=== PATIENT | female | born 1995 | race African-American/Black ===

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

== ENCOUNTER 2017-02-12 09:02 | Emergency (ER) | payer MEDICAID ==
[~2017-02-12] VITALS: Ht 165.1 cm; Wt 75.0 kg
[~2017-02-12 09:02] MED LIST: ZOFR4TAB3 SL
[2017-02-12 09:03] VITALS: BP 134/74; PULSE 80; RESP 14; TEMP 98.1; O2SAT 98
[2017-02-12 09:37] LABS: BACTERIA, URINE FEW /hpf; BLOOD, URINE SMALL (NEG); COMMENT (UR) CULTURE INDICATED; CULTURE IF INDICATED CULTURE INDICATED; GLUCOSE,URINE NEG (NEG); KETONE, URINE NEG (NEG); NITRITE,URINE NEG (NEG); PH, URINE 6.5 (5.0-8.5); RENAL EPITHELIAL CELLS 1 /hpf; SQUAMOUS EPITHELIAL CELL URINE 5 /hpf (0-5); URINE COLOR YELLOW (YELLW/STRAW)
[2017-02-12] MEDS ORDERED: PYRI200T4 PO (10:02)
[2017-02-12] MEDS ORDERED: MACR100C2 PO (10:02)
--- NOTE | 2017-02-12 10:02 | PD ---
HPI Chief Complaint: Complaint Time Seen by Provider: 09:57 Travel History International Travel<30 days: No Contact w/Intl Traveler<30days: No Traveled to known affect area: No History of Present Illness HPI 21-year-old female here with complaint of urinary symptoms. For the last 3 days patient has had discomfort, burning at the end stream of urination. She notes some urinary frequency. No hematuria. No low back pain, flank pain. She denies any abdominal discomfort until approximate 5 minutes prior to arrival , low within the abdomen. No abnormal vaginal discharge, bleeding. She does not believe she could be . No fevers or chills. PFSH Past Medical History ADHD: No Depression: Yes Cancer: No Cardiovascular Problems: No Developmental Delay: No Diabetes: No Diminished Hearing: No Gastrointestinal Disorders: Yes (chronic constipation) Musculoskeletal: Yes (TORN MENISCUS LEFT KNEE) Immunizations Current: Yes Migraines: No Seizures: No Thyroid Disease: No Ulcer: No ?: Not LMP: 01/28/17 : 2 Para: 1 Miscarriage: 0 : 1 Ovarian Cysts: Yes Past Surgical History Abdominal Surgery: Yes (UMBILICAL HERNIA REPAIR WITH MESH 4yr old) Social History Alcohol Use: No Tobacco Use: No Substance Use: No Allergies-Medications (Allergen,Severity, Reaction): Coded Allergies: No Known Allergies (Verified , 02/12/17) Reported Meds & Prescriptions Reported Meds & Active Scripts Active Review of Systems Except as stated in HPI: all other systems reviewed are Neg Physical Exam Narrative GENERAL: Well-appearing female in no acute distress SKIN: Warm and dry. HEAD: Normocephalic. EYES: No scleral icterus. No injection or drainage. ENT: Mucous membranes pink and moist. NECK: Supple CARDIOVASCULAR: Regular rate and rhythm. RESPIRATORY: No accessory muscle use. GASTROINTESTINAL: Abdomen soft, non-tender, nondistended. Hepatic and splenic margins not palpable. No CVA tenderness MUSCULOSKELETAL: Normal gait NEUROLOGICAL: Awake and alert. Normal speech. PSYCHIATRIC: Appropriate mood and affect; insight and judgment normal. Data Data Last Documented VS Vital Signs Date Time Temp Pulse Resp B/P Pulse Ox O2 Delivery O2 Flow Rate FiO2 02/12/17 09:03 98.1 80 14 134/74 98 Orders Urinalysis - C+S If Indicated (02/12/17 09:05) Ed Urine Pregnancytest Poc (02/12/17 09:15) Urine Culture (02/12/17 09:10) Labs Laboratory Tests Test 02/12/17 09:10 Urine Color YELLOW Urine Turbidity HAZY Urine pH 6.5 Urine Specific [place] 1.019 Urine Protein TRACE mg/dL Urine Glucose (UA) NEG mg/dL Urine Ketones NEG mg/dL Urine Occult Blood SMALL Urine Nitrite NEG Urine Bilirubin NEG Urine Urobilinogen LESS THAN 2.0 MG/DL Urine Leukocyte Esterase LARGE Urine RBC 32 /hpf Urine WBC 147 /hpf Urine Squamous Epithelial 5 /hpf Cells Urine Renal Epithelial Cells 1 /hpf Urine Bacteria FEW /hpf Microscopic Urinalysis Comment CULTURE INDICATED MDM Medical Decision Making Medical Screen Exam Complete: Yes Emergency Medical Condition: Yes Medical Record Reviewed: Yes Differential Diagnosis Healthy 21-year-old female here with complaint of 2-3 days of an stream dysuria , frequency. Differential includes UTI, cystitis versus pyelonephritis and less likely , ectopic . No symptoms to suggest sexual transmitted disease. Narrative Course Urine test is negative. Urinalysis positive for UTI. Patient will be treated symptomatically and discharged home. Diagnosis Primary Impression: Cystitis Referrals: Primary Care Physician as needed Additional Instructions: Pyridium as needed for pain. Finish antibiotics as prescribed. Return to the emergency department for the warning signs discussed. Med/Other Pt SpecificInfo: Prescription(s) given Scripts Nitrofurantoin Monohydrate Macrocrystals (Macrobid)100 Mg [id number] Mg PO BID 7 Days Ref 0 Prov:Karolina Phillips MD 02/12/17 Phenazopyridine (Pyridium)200 Mg [id number] Mg PO Q8H PRN (DYSURIA) #6 TAB Ref 0 Prov:Karolina Phillips MD 02/12/17 Disposition: 01 DISCHARGE HOME Condition: Stable Kaorlina Phillips MD Feb 12, 2017 10:02
== END 2017-02-12 10:32 | disposition home or self-care (01) ==
LOC: NEPB 09:02
DX: N30.90 Cystitis, unspecified without hematuria (principal); B96.4 Proteus (mirabilis) (morganii) as the cause of diseases classified elsewhere
CPT/HCPCS: 81001; 84703; 87077; 87086; 87186; 99283

== ENCOUNTER 2017-05-24 00:13 | Emergency (ER) | payer MEDICAID ==
[~2017-05-24] VITALS: Ht 170.2 cm; Wt 74.0 kg
[~2017-05-24 00:13] MED LIST changes: +MACR100C2 PO; +PYRI200T4 PO; -ZOFR4TAB3 SL
[2017-05-24 00:16] VITALS: BP 139/69; PULSE 80; RESP 14; TEMP 98.6; O2SAT 99
== END 2017-05-24 01:49 | disposition left against medical advice (07) ==
LOC: NED 00:13
DX: S01.112A Laceration without foreign body of left eyelid and periocular area, initial encounter (principal); X58.XXXA Exposure to other specified factors, initial encounter; Z53.21 Procedure and treatment not carried out due to patient leaving prior to being seen by health care provider
CPT/HCPCS: 99281

== ENCOUNTER 2017-06-16 17:40 | Emergency (ER) | payer MEDICAID ==
[~2017-06-16] VITALS: Ht 165.1 cm; Wt 72.5 kg
[2017-06-16 17:42] VITALS: BP 119/66; PULSE 75; RESP 20; TEMP 98.2; O2SAT 100
== END 2017-06-16 18:49 | disposition left against medical advice (07) ==
LOC: NED 17:40
DX: R10.9 Unspecified abdominal pain (principal); Z53.21 Procedure and treatment not carried out due to patient leaving prior to being seen by health care provider
CPT/HCPCS: 99281

== ENCOUNTER 2017-09-09 15:14 | Emergency (ER) | payer MEDICAID ==
[~2017-09-09] VITALS: Ht 165.1 cm; Wt 130.0 kg
[2017-09-09] MEDS ORDERED: IOHEXOL 350 MG/ML 10 ML VIAL (for RAD DIAG) IVCONTRAST ONE (15:15)
[2017-09-09 15:17] VITALS: BP 121/65; PULSE 70; RESP 12; TEMP 98.2; O2SAT 99
[2017-09-09 16:38] VITALS: BP 108/57; PULSE 70; RESP 18; O2SAT 100
--- NOTE | 2017-09-09 16:53 | PD ---
HPI Chief Complaint: Related Problem Time Seen by Provider: 16:30 Travel History International Travel<30 days: No Contact w/Intl Traveler<30days: No Traveled to known affect area: No History of Present Illness HPI Patient comes into the emergency department complaining of right lower quadrant pain and vaginal bleeding. Patient reports 3 days ago she took 2 tests were both positive. Patient states she is A0. Patient reports with previous she had a preemie denies any other complications. Patient reports only surgical history is a abdominal hernia at age 5. Patient describes a sharp stabbing pain right lower quadrant without radiation. Patient denies any fevers, back pain, loss or change in bowel or bladder, nausea , vomiting, chest pain, shortness of breath, or headaches. Patient denies anything making this better or worse. PFSH Past Medical History ADHD: No Depression: Yes Cancer: No Cardiovascular Problems: No Developmental Delay: No Diabetes: No Diminished Hearing: No Gastrointestinal Disorders: Yes (chronic constipation) Musculoskeletal: Yes (TORN MENISCUS LEFT KNEE) Psychiatric: Yes Immunizations Current: Yes Migraines: No Seizures: No Thyroid Disease: No Ulcer: No Tetanus Vaccination: > 5 Years Influenza Vaccination: Yes ?: LMP: 08/12/17 : 2 Para: 1 Miscarriage: 0 : 1 Ovarian Cysts: Yes Past Surgical History Abdominal Surgery: Yes (UMBILICAL HERNIA REPAIR WITH MESH 4yr old) Other Surgery: Yes (HERNIA 4 YEARS OLD) Social History Alcohol Use: No Tobacco Use: No Substance Use: No Allergies-Medications (Allergen,Severity, Reaction): Coded Allergies: No Known Allergies (Verified , 09/09/17) Reported Meds & Prescriptions Reported Meds & Active Scripts Active No Active Prescriptions or Reported Medications Review of Systems Except as stated in HPI: all other systems reviewed are Neg Physical Exam Narrative GENERAL: Well-developed, overly nourished, in no acute distress, and non-ill appearing. SKIN: Focused skin assessment warm and dry. HEAD: Atraumatic. Normocephalic. EYES: Pupils equal and round. EOMI. No scleral icterus. No injection or drainage. ENT: No nasal bleeding or discharge. Mucous membranes pink and moist. NECK: Trachea midline. Supple. No nuclear rigidity. CARDIOVASCULAR: Regular rate and rhythm. No murmur appreciated. RESPIRATORY: No accessory muscle use. No respiratory distress. Clear to auscultation. Breath sounds equal bilaterally. GASTROINTESTINAL: Abdomen soft, nondistended, and no guarding. Hepatic and splenic margins not palpable. Normal bowel sounds 4. No pulsatile mass. Patient reports that his palpation right lower quadrant. GENITOURINARY: Normal external genitalia without lesions or erythema. Vaginal vault with scant amount of blood. Cervical os was closed with scant mucousy bloody drainage. No cervical motion tenderness. Uterus nontender and nonenlarged. Bilateral adnexa nontender without masses. MUSCULOSKELETAL: No obvious deformities. No clubbing. No cyanosis. No edema. Full range of motion. NEUROLOGICAL: Awake and alert. No obvious cranial nerve deficits. Motor grossly within normal limits. Normal speech. PSYCHIATRIC: Appropriate mood and affect; insight and judgment normal. Data Data Last Documented VS Vital Signs Date Time Temp Pulse Resp B/P (MAP) Pulse Ox O2 Delivery O2 Flow Rate FiO2 09/09/17 18:47 97.8 76 17 124/81 (95) 99 09/09/17 17:00 Room Air Orders Orders Beta Hcg (Quant/Titer) (09/09/17 16:46) Complete Blood Count With Diff (09/09/17 16:46) Comprehensive Metabolic Panel (09/09/17 16:46) Lipase (09/09/17 16:46) Prothrombin Time / Inr (Pt) (09/09/17 16:46) Act Partial Throm Time (Ptt) (09/09/17 16:46) Urinalysis - C+S If Indicated (09/09/17 16:46) Ct Abd/Pel W Iv Contrast(Rout) (09/09/17 16:46) Iv Access Insert/Monitor (09/09/17 16:46) Ecg Monitoring (09/09/17 16:46) Oximetry (09/09/17 16:46) Sodium Chloride 0.9% Flush (Ns Flush) (09/09/17 17:00) Ed Urine Pregnancytest Poc (09/09/17 16:46) Gc And Chlamydia Pcr (09/09/17 16:46) Complete Rh (09/09/17 16:46) Wet Prep Profile (09/09/17 16:46) Us Pelvis Comp W Dop Transvag (09/09/17 ) Iohexol 350 Inj (Omnipaque 350 Inj) (09/09/17 15:15) Ed Discharge Order (09/09/17 18:45) Labs Laboratory Tests Test 09/09/17 16:35 09/09/17 17:00 Urine Color YELLOW Urine Turbidity CLEAR Urine pH 6.0 Urine Specific [place] 1.029 Urine Protein TRACE mg/dL Urine Glucose (UA) NEG mg/dL Urine Ketones NEG mg/dL Urine Occult Blood LARGE Urine Nitrite NEG Urine Bilirubin NEG Urine Urobilinogen 2.0 MG/DL Urine Leukocyte Esterase TRACE Urine RBC /hpf Urine WBC 4 /hpf Urine Squamous Epithelial Cells 2 /hpf Urine Bacteria FEW /hpf Urine Mucus FEW /lpf Microscopic Urinalysis Comment CULT NOT INDICATED White Blood Count 7.2 TH/MM3 Red Blood Count 4.91 MIL/MM3 Hemoglobin 13.8 GM/DL Hematocrit 42.1 % Mean Corpuscular Volume 85.7 FL Mean Corpuscular Hemoglobin 28.0 PG Mean Corpuscular Hemoglobin Concent 32.7 % Red Cell Distribution Width 13.1 % Platelet Count 177 TH/MM3 Mean Platelet Volume 10.5 FL Neutrophils (%) (Auto) 40.2 % Lymphocytes (%) (Auto) 50.2 % Monocytes (%) (Auto) 7.3 % Eosinophils (%) (Auto) 1.7 % Basophils (%) (Auto) 0.6 % Neutrophils # (Auto) 2.9 TH/MM3 Lymphocytes # (Auto) 3.6 TH/MM3 Monocytes # (Auto) 0.5 TH/MM3 Eosinophils # (Auto) 0.1 TH/MM3 Basophils # (Auto) 0.0 TH/MM3 CBC Comment DIFF FINAL Differential Comment Prothrombin Time 11.3 SEC Prothromb Time International Ratio 1.0 RATIO Activated Partial Thromboplast Time 30.6 SEC Clue Cells (Wet Prep) NONE SEEN Vaginal Trichomonas (Wet Prep) NONE SEEN Vaginal Yeast (Wet Prep) NONE SEEN Blood Urea Nitrogen 10 MG/DL Creatinine 0.89 MG/DL Random Glucose 89 MG/DL Total Protein 7.6 GM/DL Albumin 3.4 GM/DL Calcium Level 8.6 MG/DL Alkaline Phosphatase 71 U/L Aspartate Amino Transf (AST/SGOT) 8 U/L Alanine Aminotransferase (ALT/SGPT) 19 U/L Total Bilirubin 0.4 MG/DL Sodium Level 139 MEQ/L Potassium Level 4.4 MEQ/L Chloride Level 108 MEQ/L Carbon Dioxide Level 26.8 MEQ/L Anion Gap 4 MEQ/L Estimat Glomerular Filtration Rate 98 ML/MIN Lipase 115 U/L Human Chorionic Gonadotropin, Quant LESS THAN 1 MIU/ML MDM Medical Decision Making Medical Screen Exam Complete: Yes Emergency Medical Condition: Yes Differential Diagnosis Appendicitis, ectopic , ovarian cyst, ovary torsion, dysmenorrhea, STD , other Narrative Course The patient presented with right sided abdominal pain and the patient was accordingly mildly tender. The patient otherwise appeared comfortable and hydrated. Laboratory and radiologic evaluation with a contrasted CT scan of the abdomen and pelvis was performed to rule out appendicitis. Pelvic ultrasound was obtained rule out ovarian cysts, ectopic , and torsion Evaluation revealed no clinical evidence of acute appendicitis at this time. However the patient was given appendicitis warnings an informed of possible early appendicitis not detected. The patient was instructed to follow up with their regular physician for re-evaluation or may return here for re-evaluation. The patient is to return if worsens, pain worsens or changes, develop persistent fever, inability to tolerate fluids with or without vomiting, unable to establish follow up or as needed. There was no evidence of an acute, surgical abdomen at this time. There was no clinical evidence to support cholecystitis/ cholelithiasis, pancreatitis, perforation of gastric ulcer, colitis, diverticulitis, obstruction, volvulus, early appendicitis, or hernial incarceration or strangulation at this time. There was no evidence to support vascular pathology such as AAA, mesenteric ischemia. There was also no clinical evidence by history, exam or risk factors to suggest atypical presentation of cardiac disease such as ACS, AMI or atypical angina. No evidence to suggest genitourinary etiology as well. The patient agreed with plan of care and management. The patient was instructed to follow up with their physician. Patient in no obvious distress upon re-evaluation. All pertinent laboratory/ Radiology result(s) discussed with patient with exception gonorrhea and chlamydia that is currently pending. Discussed patient with Dr. Mcgill prior to discharge, who is in agreement with plan of care and disposition. Any questions /concerns in reference to patient diagnosis/condition discussed and clarified prior to patient's discharge. Reinforced sheer importance of close follow up with patient's primary physician or primary care clinic. Instructed patient to return to ED immediately, if symptoms return/worsen. Patient showed understanding of above instructions. Further instructions and recommendations were detailed in discharge paperwork. Patient ambulated without difficulty out of ED at discharge. Diagnosis Primary Impression: Right lower quadrant abdominal pain of unknown etiology Additional Impression: Ovarian cyst Qualified Codes: N83.201 - Unspecified ovarian cyst, right side; N83.202 - Unspecified ovarian cyst, left side Referrals: [facility] Patient Instructions: Abdominal Pain (ED), General Instructions, Ovarian Cyst ( ED) Additional Instructions: Follow-up with your primary care physician next week for reevaluation. Use over -the-counter Tylenol and/or ibuprofen as needed for pain. Follow instructions on the packaging. Return to the emergency department if symptoms get worse. Scripts No Active Prescriptions or Reported Meds Disposition: 01 DISCHARGE HOME Condition: Stable Leon Calvillo Sep 09, 2017 16:53
[2017-09-09 17:00] VITALS: RESP 18; O2SAT 99
[2017-09-09] MEDS ORDERED: SODIUM CHLORIDE 0.9% FLUSH 10 ML FLUSH IV FLUSH PRN (17:00)
[2017-09-09 17:24] LABS: AUTOMATED NEUTROPHIL # 2.9 TH/MM3 (1.8-7.7); BASOPHIL % 0.6 % (0.0-2.0); EOSINOPHIL # 0.1 TH/MM3 (0-0.4); EOSINOPHIL % 1.7 % (0.0-4.0); HEMATOCRIT 42.1 % (35.0-46.0); HEMO FLAGS DIFF FINAL; LYMPH % 50.2 % (9.0-44.0); LYMPHOCYTE # 3.6 TH/MM3 (1.0-4.8); MEAN CELL VOLUME 85.7 FL (80.0-100.0); MEAN CORPUSCULAR HGB CONC 32.7 % (32.0-36.0); MONO % 7.3 % (0.0-8.0); NEUT % 40.2 % (16.0-70.0); PLATELET COUNT 177 TH/MM3 (150-450); RED BLOOD COUNT 4.91 MIL/MM3 (4.00-5.30); RED CELL DISTRIBUTION WIDTH 13.1 % (11.6-17.2); WHITE BLOOD COUNT 7.2 TH/MM3 (4.0-11.0)
[2017-09-09 17:36] LABS: APTT (PATIENT) 30.6 SEC (24.3-30.1); PROTHROMBIN TIME - PATIENT 11.3 SEC (9.8-11.6)
[2017-09-09 17:36] LABS: BACTERIA, URINE FEW /hpf; BLOOD, URINE LARGE (NEG); COMMENT (UR) CULT NOT INDICATED; CULTURE IF INDICATED CULT NOT INDICATED; GLUCOSE,URINE NEG (NEG); KETONE, URINE NEG (NEG); MUCUS URINE FEW /lpf (OCC); NITRITE,URINE NEG (NEG); SQUAMOUS EPITHELIAL CELL URINE 2 /hpf (0-5); URINE COLOR YELLOW (YELLW/STRAW)
[2017-09-09 17:46] LABS: ALT (GPT) 19 U/L (9-42); ANION GAP 4 MEQ/L (5-15); AST (GOT) 8 U/L (16-38); BICARBONATE 26.8 MEQ/L (21.0-32.0); BLOOD UREA NITROGEN 10 MG/DL (7-18); CHLORIDE 108 MEQ/L (98-107); GLOMERULAR FILTRATION RATE 98 ML/MIN (>89); POTASSIUM 4.4 MEQ/L (3.5-5.1); SODIUM (NA) 139 MEQ/L (136-145)
[2017-09-09 17:50] LABS: ALKALINE PHOSPHATASE 71 U/L (45-117); BETA HCG QUANT LESS THAN 1 MIU/ML (0-5); TOTAL BILIRUBIN ADULT 0.4 MG/DL (0.2-1.0)
--- NOTE | 2017-09-09 18:34 | RADRPT ---
EXAM DATE/TIME: 09/09/2017 17:43 [facility] COMPARISON: No previous studies available for comparison. INDICATIONS : Bleeding and pelvic pain. MEDICAL HISTORY : . Ovarian cysts. Depression. SURGICAL HISTORY : Umbilical hernia repair. ENCOUNTER: Initial ACUITY: 3 days PAIN SCORE: 7/10 LOCATION: Bilateral pelvis MEASUREMENTS: UTERUS: 7.0 x 4.1 x 3.8 cm ENDOMETRIAL STRIPE: 4 mm RIGHT OVARY: 2.7 x 2.5 x 1.3 cm LEFT OVARY: 2.5 x 1.9 x 1.2 cm FINDINGS: UTERUS: The myometrium has homogeneous echotexture without mass. RIGHT OVARY: Ovary contains no mass or significant cystic lesion. Follicular cysts LEFT OVARY: Ovary contains no mass or significant cystic lesion. Follicular cysts MISCELLANEOUS: Small amount of free fluid. CONCLUSION: Small amount of free fluid in the pelvis. Follicular cysts of the ovaries. Uterus is normal with norm al endometrium and no evidence of Bernardo Shultz MD on September 09, 2017 at 18:30 Board Certified Radiologist. This report was verified electronically.
--- NOTE | 2017-09-09 18:39 | RADRPT ---
EXAM DATE/TIME: 09/09/2017 18:16 [facility] COMPARISON: US PELVIS,COMP,W DOPLR, TRANS VAG, September 09, 2017, 17:43. INDICATIONS : Right sided abdomen pain for one day. IV CONTRAST: 80 cc Omnipaque 350 (iohexol) IV ORAL CONTRAST: No oral contrast ingested. RADIATION DOSE: 7.84 CTDIvol (mGy) MEDICAL HISTORY : None SURGICAL HISTORY : Umbilical hernia. ENCOUNTER: Initial ACUITY: 1 day PAIN SCALE: 7/10 LOCATION: Right upper quadrant TECHNIQUE: Volumetric scanning of the abdomen and pelvis was performed. Using automated exposure control and adjustment of the mA and/or kV according to patient size, radiation dose was kept as low as reasonably achievable to obtain optimal diagnostic quality images. DICOM format image data is av ailable electronically for review and comparison. FINDINGS: LOWER LUNGS: The visualized lower lungs are clear. LIVER: Homogeneous density without lesion. There is no dilation of the biliary tree. No calcifi ed gallstones. Gallbladder seen this luminal structure without wall thickening. SPLEEN: Normal size without lesion. PANCREAS: Within normal limits. KIDNEYS: Normal in size and shape. There is no mass, stone or hydronephrosis. ADRENAL GLANDS: Within normal limits. VASCULAR: There is no aortic aneurysm. BOWEL/MESENTERY: The stomach, small bowel, and colon demonstrate no acute abnormality. There is no free intraperitoneal air or fluid. ABDOMINAL WALL: Within normal limits. RETROPERITONEUM: There is no lymphadenopathy. BLADDER: No wall thickening or mass. REPRODUCTIVE: Within normal limits. Small moderate free fluid in the pelvis. INGUINAL: There is no lymphadenopathy or hernia. MUSCULOSKELETAL: Within normal limits for patient age. CONCLUSION: Negative examination other than a small amount of free fluid in the pelvis. Bernardo Shultz MD on September 09, 2017 at 18:35 Board Certified Radiologist. This report was verified electronically.
[2017-09-09 18:47] VITALS: BP 124/81; TEMP 97.8
[2017-09-09 19:29] LABS: CHLAMYDIA PCR NOT DETECTED (NOT DETECT); NEISSERIA PCR NOT DETECTED (NOT DETECT)
== END 2017-09-09 18:54 | disposition home or self-care (01) ==
LOC: NEPC 15:14
DX: R10.31 Right lower quadrant pain (principal); N83.201 Unspecified ovarian cyst, right side; N83.202 Unspecified ovarian cyst, left side; N93.9 Abnormal uterine and vaginal bleeding, unspecified; Z86.59 Personal history of other mental and behavioral disorders; Z87.19 Personal history of other diseases of the digestive system; Z87.39 Personal history of other diseases of the musculoskeletal system and connective tissue; Z87.42 Personal history of other diseases of the female genital tract
CPT/HCPCS: 74177; 76830; 76856; 80053; 81001; 83690; 84702; 84703; 85025; 85610; 85730; 86901; 87210; 87491; 87591; 93975; 99284; Q9967

== ENCOUNTER 2018-01-05 10:47 | Emergency (ER) | payer MEDICAID ==
[~2018-01-05] VITALS: Ht 165.1 cm; Wt 80.0 kg
[2018-01-05 10:49] VITALS: BP 109/51; PULSE 84; RESP 12; TEMP 97.8; O2SAT 100
== END 2018-01-05 11:24 | disposition left against medical advice (07) ==
LOC: NED 10:47
DX: Z00.00 Encounter for general adult medical examination without abnormal findings (principal); Z53.21 Procedure and treatment not carried out due to patient leaving prior to being seen by health care provider
CPT/HCPCS: 99281

== ENCOUNTER 2018-01-12 20:15 | Emergency (ER) | payer MEDICAID ==
[2018-01-12 20:17] VITALS: BP 106/60; PULSE 64; RESP 16; TEMP 97.9; O2SAT 99
[2018-01-12 21:18] LABS: AUTOMATED NEUTROPHIL # 2.9 TH/MM3 (1.8-7.7); BACTERIA, URINE RARE /hpf; BASOPHIL % 0.5 % (0.0-2.0); BILIRUBIN, URINE NEG (NEG); BLOOD, URINE NEG (NEG); EOSINOPHIL % 0.7 % (0.0-4.0); GLUCOSE,URINE NEG (NEG); HEMATOCRIT 41.6 % (35.0-46.0); HEMOGLOBIN 13.7 GM/DL (11.6-15.3); KETONE, URINE NEG (NEG); LYMPH % 45.2 % (9.0-44.0); LYMPHOCYTE # 2.8 TH/MM3 (1.0-4.8); MEAN CELL VOLUME 85.3 FL (80.0-100.0); MEAN CORPUSCULAR HEMOGLOBIN 28.1 PG (27.0-34.0); MEAN CORPUSCULAR HGB CONC 32.9 % (32.0-36.0); MEAN PLATELET VOLUME 9.1 FL (7.0-11.0); MONO % 6.3 % (0.0-8.0); MONOCYTE # 0.4 TH/MM3 (0-0.9); MUCUS URINE FEW /lpf (OCC); NEUT % 47.3 % (16.0-70.0); NITRITE,URINE NEG (NEG); PH, URINE 6.5 (5.0-8.5); PLATELET COUNT 240 TH/MM3 (150-450); RED BLOOD COUNT 4.88 MIL/MM3 (4.00-5.30); RED CELL DISTRIBUTION WIDTH 13.2 % (11.6-17.2); SQUAMOUS EPITHELIAL CELL URINE 8 /hpf (0-5); URINE COLOR YELLOW (YELLW/STRAW); URINE LEUKOCYTE ESTERASE LARGE (NEG); WHITE BLOOD COUNT 6.2 TH/MM3 (4.0-11.0)
[2018-01-12 21:30] LABS: ALBUMIN 3.4 GM/DL (3.4-5.0); AST (GOT) 11 U/L (16-38); BICARBONATE 24.9 MEQ/L (21.0-32.0); BLOOD UREA NITROGEN 10 MG/DL (7-18); CALCIUM 8.8 MG/DL (8.5-10.1); CHLORIDE 103 MEQ/L (98-107); CREATININE 0.81 MG/DL (0.50-1.00); GLOMERULAR FILTRATION RATE 109 ML/MIN (>89); GLUCOSE,RANDOM 88 MG/DL (74-106); SODIUM (NA) 135 MEQ/L (136-145)
[2018-01-12 21:36] LABS: ALKALINE PHOSPHATASE 65 U/L (45-117); ALT (GPT) 22 U/L (9-42); TOTAL BILIRUBIN ADULT 0.5 MG/DL (0.2-1.0); TOTAL PROTEIN 7.7 GM/DL (6.4-8.2)
[2018-01-12] MEDS ORDERED: SODIUM CHLOR 0.9% 1000 ML INJ 1,000 ML IV ONE (22:30)
[2018-01-12] MEDS ORDERED: cefTRIAXone 250 MG VIAL IM ONE (22:30)
[2018-01-12] MEDS ORDERED: AZITHROMYCIN PWD FOR SUSP 1 GM PACKET PO ONE (22:30)
[2018-01-12] MEDS ORDERED: LIDOCAINE HCL 1% 50 ML VIAL IM ONE (22:30)
[2018-01-12] MEDS ORDERED: diphenhydrAMINE HCL 50 MG/ML VIAL IV PUSH ONE (22:30)
--- NOTE | 2018-01-12 22:30 | PD ---
HPI Chief Complaint: Abdominal Pain Time Seen by Provider: 22:16 Travel History International Travel<30 days: No Contact w/Intl Traveler<30days: No Traveled to known affect area: No History of Present Illness HPI 22-year-old black female 3 para 1 AB 1 with a last menstrual period of presents to emergency department with complains of lower abdominal cramping with associated nausea she performed a home test approximately 1-2 weeks ago. She is noticed some increasing abdominal cramping and malaise over last few days. She is had morning sickness. Patient denies any fever chills. No cough or congestion. No abnormal bleeding or abnormal discharging. She has not seen an OB doctor yet. Symptoms are moderate. Cramping in nature. Intermittent. Intensity varies. No alleviating symptoms. PFSH Past Medical History ADHD: No Depression: Yes Cancer: No Cardiovascular Problems: No Developmental Delay: No Diabetes: No Diminished Hearing: No Gastrointestinal Disorders: Yes (chronic constipation) Musculoskeletal: Yes (TORN MENISCUS LEFT KNEE) Psychiatric: Yes Immunizations Current: Yes Migraines: No Seizures: No Thyroid Disease: No Ulcer: No Tetanus Vaccination: < 5 Years Influenza Vaccination: No ?: LMP: 11/30 : 2 Para: 1 Miscarriage: 0 : 1 Ovarian Cysts: Yes Past Surgical History Abdominal Surgery: Yes (UMBILICAL HERNIA REPAIR WITH MESH 4yr old) Other Surgery: Yes (HERNIA 4 YEARS OLD) Social History Alcohol Use: No Tobacco Use: No Substance Use: No Allergies-Medications (Allergen,Severity, Reaction): Coded Allergies: No Known Allergies (Verified , 09/09/17) Reported Meds & Prescriptions Reported Meds & Active Scripts Active No Active Prescriptions or Reported Medications Review of Systems Except as stated in HPI: all other systems reviewed are Neg Physical Exam Narrative GENERAL: Well-developed, well-nourished in no acute distress. Nontoxic appearing. HEAD: Normocephalic, atraumatic. EYES: Pupils equal round and reactive. Extraocular motions intact. No scleral icterus. No injection or drainage. ENT: TMs clear without erythema. The external auditory canals clear. Nose: clear . Posterior pharynx is pink and moist. No tonsillar edema or exudate. Uvula midline. Airway patent. NECK: Trachea midline.Supple, nontender, moves head freely. No central bony tenderness or spasm. CARDIOVASCULAR: Regular rate and rhythm without murmurs, gallops, or rubs. RESPIRATORY: Clear to auscultation. Breath sounds equal bilaterally. No wheezes , rales, or rhonchi. GASTROINTESTINAL: Abdomen soft, non-tender, nondistended. No hepato-splenomegaly , or palpable masses. No guarding. No rebound. EXTREMITIES: No clubbing, cyanosis, or edema. No joint tenderness, effusion, or edema noted. BACK: Nontender without deformity or crepitance. No flank tenderness. Data Data Last Documented VS Vital Signs Date Time Temp Pulse Resp B/P (MAP) Pulse Ox O2 Delivery O2 Flow Rate FiO2 01/12/18 20:55 18 01/12/18 20:17 97.9 64 106/60 (75) 99 Room Air Orders Orders Complete Blood Count With Diff (01/12/18 20:21) Comprehensive Metabolic Panel (01/12/18 20:21) Lipase (01/12/18 20:21) Urinalysis - C+S If Indicated (01/12/18 20:21) Ed Urine Pregnancytest Poc (01/12/18 22:16) Ed Urine Pregnancytest Poc (01/12/18 22:22) Beta Hcg (Quant/Titer) (01/12/18 22:23) Iv Access Insert/Monitor (01/12/18 22:23) Sodium Chlor 0.9% 1000 Ml Inj (Ns 1000 M (01/12/18 22:30) Diphenhydramine Inj (Benadryl Inj) (01/12/18 22:30) Gc And Chlamydia Pcr (01/12/18 22:23) Wet Prep Profile (01/12/18 22:23) Azithromycin Powd Pack (Zithromax Powd P (01/12/18 22:30) Ceftriaxone Inj (Rocephin Inj) (01/12/18 22:30) Lidocaine 1% Inj (50 Ml) (Xylocaine 1% I (01/12/18 22:30) Lidocaine Pf 1% Inj (Xylocaine-Mpf 1% In (01/12/18 22:39) Us Pelvis (Ques Pr/Ect)W Trans (01/12/18 22:23) Ed Discharge Order (01/13/18 01:22) Labs Laboratory Tests Test 01/12/18 21:00 01/13/18 00:20 White Blood Count 6.2 TH/MM3 Red Blood Count 4.88 MIL/MM3 Hemoglobin 13.7 GM/DL Hematocrit 41.6 % Mean Corpuscular Volume 85.3 FL Mean Corpuscular Hemoglobin 28.1 PG Mean Corpuscular Hemoglobin Concent 32.9 % Red Cell Distribution Width 13.2 % Platelet Count 240 TH/MM3 Mean Platelet Volume 9.1 FL Neutrophils (%) (Auto) 47.3 % Lymphocytes (%) (Auto) 45.2 % Monocytes (%) (Auto) 6.3 % Eosinophils (%) (Auto) 0.7 % Basophils (%) (Auto) 0.5 % Neutrophils # (Auto) 2.9 TH/MM3 Lymphocytes # (Auto) 2.8 TH/MM3 Monocytes # (Auto) 0.4 TH/MM3 Eosinophils # (Auto) 0.0 TH/MM3 Basophils # (Auto) 0.0 TH/MM3 CBC Comment DIFF FINAL Differential Comment Urine Color YELLOW Urine Turbidity CLEAR Urine pH 6.5 Urine Specific [place] 1.014 Urine Protein NEG mg/dL Urine Glucose (UA) NEG mg/dL Urine Ketones NEG mg/dL Urine Occult Blood NEG Urine Nitrite NEG Urine Bilirubin NEG Urine Urobilinogen LESS THAN 2.0 MG/DL Urine Leukocyte Esterase LARGE Urine RBC 3 /hpf Urine WBC 4 /hpf Urine Squamous Epithelial Cells 8 /hpf Urine Bacteria RARE /hpf Urine Mucus FEW /lpf Microscopic Urinalysis Comment CULT NOT INDICATED Blood Urea Nitrogen 10 MG/DL Creatinine 0.81 MG/DL Random Glucose 88 MG/DL Total Protein 7.7 GM/DL Albumin 3.4 GM/DL Calcium Level 8.8 MG/DL Alkaline Phosphatase 65 U/L Aspartate Amino Transf (AST/SGOT) 11 U/L Alanine Aminotransferase (ALT/SGPT) 22 U/L Total Bilirubin 0.5 MG/DL Sodium Level 135 MEQ/L Potassium Level 3.9 MEQ/L Chloride Level 103 MEQ/L Carbon Dioxide Level 24.9 MEQ/L Anion Gap 7 MEQ/L Estimat Glomerular Filtration Rate 109 ML/MIN Lipase 104 U/L Human Chorionic Gonadotropin, Quant 53683 MIU/ML Clue Cells (Wet Prep) PRESENT Vaginal Trichomonas (Wet Prep) PRESENT Vaginal Yeast (Wet Prep) NONE SEEN MDM Medical Decision Making Medical Screen Exam Complete: Yes Emergency Medical Condition: Yes Medical Record Reviewed: Yes Interpretation(s) Wet prep: Positive for Trichomonas and Gardnerella Last 24 hours Impressions Pelvis Ultrasound 01/12/187 Signed Impressions: Service Date/Time: Friday, January 12, 2018 23:57 - CONCLUSION: 1. Early intrauterine corresponding to 5 weeks six-day menstrual age. heart rate of 113 beats per minute was obtained. 2. Small cystic area in the right ovary likely representing an early corpus luteal cyst. 3. Trace free fluid in the right adnexa. Kenney Alvarez MD Patient is Rh+ Laboratory Tests Test 01/12/18 21:00 White Blood Count 6.2 TH/MM3 Red Blood Count 4.88 MIL/MM3 Hemoglobin 13.7 GM/DL Hematocrit 41.6 % Mean Corpuscular Volume 85.3 FL Mean Corpuscular Hemoglobin 28.1 PG Mean Corpuscular Hemoglobin Concent 32.9 % Red Cell Distribution Width 13.2 % Platelet Count 240 TH/MM3 Mean Platelet Volume 9.1 FL Neutrophils (%) (Auto) 47.3 % Lymphocytes (%) (Auto) 45.2 % Monocytes (%) (Auto) 6.3 % Eosinophils (%) (Auto) 0.7 % Basophils (%) (Auto) 0.5 % Neutrophils # (Auto) 2.9 TH/MM3 Lymphocytes # (Auto) 2.8 TH/MM3 Monocytes # (Auto) 0.4 TH/MM3 Eosinophils # (Auto) 0.0 TH/MM3 Basophils # (Auto) 0.0 TH/MM3 CBC Comment DIFF FINAL Differential Comment Urine Color YELLOW Urine Turbidity CLEAR Urine pH 6.5 Urine Specific [place] 1.014 Urine Protein NEG mg/dL Urine Glucose (UA) NEG mg/dL Urine Ketones NEG mg/dL Urine Occult Blood NEG Urine Nitrite NEG Urine Bilirubin NEG Urine Urobilinogen LESS THAN 2.0 MG/DL Urine Leukocyte Esterase LARGE Urine RBC 3 /hpf Urine WBC 4 /hpf Urine Squamous Epithelial Cells 8 /hpf Urine Bacteria RARE /hpf Urine Mucus FEW /lpf Microscopic Urinalysis Comment CULT NOT INDICATED Blood Urea Nitrogen 10 MG/DL Creatinine 0.81 MG/DL Random Glucose 88 MG/DL Total Protein 7.7 GM/DL Albumin 3.4 GM/DL Calcium Level 8.8 MG/DL Alkaline Phosphatase 65 U/L Aspartate Amino Transf (AST/SGOT) 11 U/L Alanine Aminotransferase (ALT/SGPT) 22 U/L Total Bilirubin 0.5 MG/DL Sodium Level 135 MEQ/L Potassium Level 3.9 MEQ/L Chloride Level 103 MEQ/L Carbon Dioxide Level 24.9 MEQ/L Anion Gap 7 MEQ/L Estimat Glomerular Filtration Rate 109 ML/MIN Lipase 104 U/L Differential Diagnosis Differential diagnoses: Pain in , morning sickness, ectopic , threatened AB, STD Narrative Course IV access is obtained. Patient's given a liter bolus normal saline, Benadryl 50 g IV, Rocephin 250 mg IM, and Zithromax 1 g by mouth. A pelvic ultrasound has been ordered. A pelvic exam will be performed. Patient is given a copy of her ultrasound. She is aware of the laboratory findings. Patient is aware she has Trichomonas and Gardnerella. She is given prescriptions for additional vaginal cream. She agrees with treatment plan of follow-up. This is first trimester , threatened Procedures Procedure Narrative The patient was examined in the presence of the nurse. GENITOURINARY: Normal external genitalia without lesions or erythema. Vaginal vault without blood or drainage. Cervical os was closed without drainage. No cervical motion tenderness. Uterus consistent with approximately 5 weeks.. Bilateral adnexa nontender without masses. Diagnosis Primary Impression: First trimester Additional Impressions: Threatened Trichomonas vaginitis Gardnerella vaginitis Patient Instructions: General Instructions Additional Instructions: Rest. Increase fluids. Vitamin B 6 for nausea. Follow-up with [facility] for recheck in the next 2-3 days. Return to the ER if any problems. Med/Other Pt SpecificInfo: Prescription(s) given Scripts No Active Prescriptions or Reported Meds Disposition: 01 DISCHARGE HOME Condition: Stable Kam Aguilar Jan 12, 2018 22:30
[2018-01-12] MEDS ORDERED: LIDOCAINE HCL 1% PF 2 ML VIAL ONE (22:39)
--- NOTE | 2018-01-13 00:52 | RADRPT ---
EXAM DATE/TIME: 01/12/2018 23:57 [facility] COMPARISON: No previous studies available for comparison. INDICATIONS : Pelvic pain with . LAB(S): Beta-hC,849 MEDICAL HISTORY : . SURGICAL HISTORY : Umbilical hernia repair. ENCOUNTER: Initial ACUITY: 1 day PAIN SCORE: 4/10 LOCATION: Bilateral pelvis MEASUREMENTS: UTERUS: 8.8 x 4.8 x 5.9 cm ENDOMETRIAL STRIPE: 17 mm RIGHT OVARY: 2.9 x 2.3 x 2.4 cm LEFT OVARY: 2.8 x 1.7 x 1.5 cm FREE FLUID: Yes Right adnexa. CROWN RUMP LENGTH: 0.28 cm = 5 WKS 6 DAYS FHR: 113 BPM FINDINGS: UTERUS: There is a single intrauterine present with crown-rump length corresponding to 5 weeks six- day menstrual age. heart rate of 113 beats per minute was obtained. A small yolk sac is noted. RIGHT OVARY: There is a small cystic structure measuring 1.2 x 1.3 x 0.9 cm. LEFT OVARY: Ovary contains no mass or significant cystic lesion. MISCELLANEOUS: There is a trace amount of free fluid in the right adnexal region. CONCLUSION: 1. Early intrauterine corresponding to 5 weeks six-day menstrual age. heart rate of 1 13 beats per minute was obtained. 2. Small cystic area in the right ovary likely representing an early corpus luteal cyst. 3. Trace free fluid in the right adnexa. Kenney Alvarez MD on January 13, 2018 at 0:49 Board Certified Radiologist. This report was verified electronically.
[2018-01-13] MEDS ORDERED: VITA50TA30 PO (01:31)
[2018-01-13] MEDS ORDERED: CLEO2CRE VAGINAL (01:31)
[2018-01-13] MEDS ORDERED: metroNIDAZOLE 500 MG TAB PO ONE (01:45)
== END 2018-01-13 01:53 | disposition home or self-care (01) ==
LOC: NEPD 20:15
DX: O20.0 Threatened abortion (principal); A59.01 Trichomonal vulvovaginitis; B96.89 Other specified bacterial agents as the cause of diseases classified elsewhere; R11.0 Nausea
CPT/HCPCS: 76700; 76817; 80053; 81001; 83690; 84702; 84703; 85025; 87210; 87491; 87591; 96361; 96372; 96374; 99284; J0696; J1200; J7030

== ENCOUNTER 2018-01-16 16:37 | Emergency (ER) | payer MEDICAID ==
[~2018-01-16] VITALS: Ht 167.6 cm; Wt 80.0 kg
[~2018-01-16 16:37] MED LIST changes: +CLEO2CRE VAGINAL; -MACR100C2 PO; -PYRI200T4 PO; +VITA50TA30 PO
[2018-01-16 16:39] VITALS: BP 118/57; PULSE 93; RESP 16; TEMP 98.8; O2SAT 97
--- NOTE | 2018-01-16 17:28 | PD ---
HPI Chief Complaint: GI Complaint Time Seen by Provider: 17:09 Travel History International Travel<30 days: No Contact w/Intl Traveler<30days: No Traveled to known affect area: No History of Present Illness HPI The patient was seen and examined in the presence of the nurse. This patient complains of multiple things. She is 6 weeks and has anxiety problems. She complains of shortness of breath. She has runny nose and congestion and nausea and vomiting and occasional abdominal cramps fatigued and tired. She denies vaginal bleeding or discharge. No documented fever. Symptoms severity is moderate. No alleviating factors. No exacerbating factors. PFSH Past Medical History ADHD: No Asthma: Yes Depression: Yes Cancer: No Cardiovascular Problems: No Developmental Delay: No Diabetes: No Diminished Hearing: No Gastrointestinal Disorders: Yes (chronic constipation) Musculoskeletal: Yes (TORN MENISCUS LEFT KNEE) Psychiatric: Yes Immunizations Current: Yes Migraines: No Seizures: No Thyroid Disease: No Ulcer: No ?: LMP: 11/30/2017 : 3 Para: 1 Miscarriage: 0 : 1 Ovarian Cysts: Yes Past Surgical History Abdominal Surgery: Yes (UMBILICAL HERNIA REPAIR WITH MESH 4yr old) Other Surgery: Yes (HERNIA 4 YEARS OLD) Social History Alcohol Use: No Tobacco Use: No Substance Use: No Allergies-Medications (Allergen,Severity, Reaction): Coded Allergies: No Known Allergies (Verified Adverse Reaction, Unknown, 01/16/18) Reported Meds & Prescriptions Reported Meds & Active Scripts Active Phenergan Supp (Promethazine HCl) 25 Mg Supp 25 Mg RECTAL Q6H PRN Vitamin B-6 (Pyridoxine HCl) 50 Mg Tab 50 Mg PO Q8HR PRN Cleocin Vaginal Cream (Clindamycin Vaginal Cream) 2% Cream 1 Appl VAGINAL HS Review of Systems General / Constitutional: No: Fever Eyes: No: Visual changes HENT: Positive: Rhinorrhea, Congestion, No: Headaches Cardiovascular: No: Chest Pain or Discomfort Respiratory: Positive: Shortness of Breath Gastrointestinal: Positive: Nausea, Vomiting, No: Abdominal Pain Genitourinary: No: Dysuria Musculoskeletal: Positive: Myalgias, No: Pain Skin: No Rash Neurologic: No: Weakness Psychiatric: Positive: Anxiety, No: Depression Endocrine: No: Polydipsia Hematologic/Lymphatic: No: Easy Bruising Physical Exam Narrative GENERAL: Well-nourished, well-developed patient in no apparent distress. SKIN: Focused skin assessment reveals no rash and nodules. Skin is Warm and dry. HEAD: Atraumatic. Normocephalic. EYES: Pupils equal and round. No scleral icterus. No injection or drainage. ENT: No nasal bleeding or discharge. Mucous membranes pink and moist. Nares shows rhinorrhea NECK: Trachea midline. No JVD. CARDIOVASCULAR: Regular rate and rhythm. No murmur appreciated. RESPIRATORY: No accessory muscle use. Clear to auscultation. Breath sounds equal bilaterally. GASTROINTESTINAL: Abdomen soft, non-tender, nondistended. Hepatic and splenic margins not palpable. MUSCULOSKELETAL: No obvious deformities. No clubbing. No cyanosis. No edema. NEUROLOGICAL: Awake and alert. No obvious cranial nerve deficits. Motor grossly within normal limits. Normal speech. PSYCHIATRIC: Appropriate mood and affect; insight and judgment normal. Data Data Last Documented VS Vital Signs Date Time Temp Pulse Resp B/P (MAP) Pulse Ox O2 Delivery O2 Flow Rate FiO2 01/16/18 16:39 98.8 93 16 118/57 (77) 97 Orders Orders Iv Access Insert/Monitor (01/16/18 17:24) Ondansetron Inj (Zofran Inj) (01/16/18 17:30) Sodium Chlor 0.9% 1000 Ml Inj (Ns 1000 M (01/16/18 17:30) Complete Blood Count With Diff (01/16/18 17:24) Basic Metabolic Panel (Bmp) (01/16/18 17:24) Influenzae A/B Antigen (01/16/18 17:24) Chest, Single Ap (01/16/18 ) Labs Laboratory Tests Test 01/16/18 17:50 White Blood Count 6.6 TH/MM3 Red Blood Count 5.08 MIL/MM3 Hemoglobin 14.5 GM/DL Hematocrit 43.1 % Mean Corpuscular Volume 84.9 FL Mean Corpuscular Hemoglobin 28.6 PG Mean Corpuscular Hemoglobin Concent 33.7 % Red Cell Distribution Width 13.1 % Platelet Count 246 TH/MM3 Mean Platelet Volume 9.6 FL Neutrophils (%) (Auto) 61.7 % Lymphocytes (%) (Auto) 30.9 % Monocytes (%) (Auto) 6.8 % Eosinophils (%) (Auto) 0.2 % Basophils (%) (Auto) 0.4 % Neutrophils # (Auto) 4.0 TH/MM3 Lymphocytes # (Auto) 2.0 TH/MM3 Monocytes # (Auto) 0.4 TH/MM3 Eosinophils # (Auto) 0.0 TH/MM3 Basophils # (Auto) 0.0 TH/MM3 CBC Comment DIFF FINAL Differential Comment Blood Urea Nitrogen 8 MG/DL Creatinine 0.83 MG/DL Random Glucose 77 MG/DL Calcium Level 9.0 MG/DL Sodium Level 138 MEQ/L Potassium Level 3.3 MEQ/L Chloride Level 103 MEQ/L Carbon Dioxide Level 24.9 MEQ/L Anion Gap 10 MEQ/L Estimat Glomerular Filtration Rate 106 ML/MIN MDM Medical Decision Making Medical Screen Exam Complete: Yes Emergency Medical Condition: Yes Medical Record Reviewed: Yes Differential Diagnosis Flu syndrome, bronchitis, anxiety, pneumonia, dehydration Narrative Course I have reviewed the patient's electronic medical record. Patient was seen here 4 days ago and had extensive workup including pelvic ultrasound demonstrating IUP IV placed I gave her IV normal saline 1 L bolus and IV Zofran CBC is normal Metabolic profile is normal Influenza swab is negative We discussed radiation risk and alternatives and benefits to chest x-ray. However given that her chief complaint was shortness of breath have ordered a chest x-ray and she is in agreement and will accept the risk to the fetus I reviewed the chest x-ray which is normal Workup here is negative for anything objective to treat. She may have a viral syndrome Stable for outpatient follow-up. She requests a different nausea medication Prescribed her some Phenergan suppositories after discussion of possible risks fetus. It is category C. Also warned her about sedation of the medication. Diagnosis Primary Impression: Shortness of breath Additional Impressions: First trimester Vomiting Qualified Codes: R11.2 - Nausea with vomiting, unspecified Med/Other Pt SpecificInfo: Prescription(s) given Scripts Promethazine Supp (Phenergan Supp) 25 Mg Supp 25 MG RECTAL Q6H Y for NAUSEA OR VOMITING, #14 SUPP 0 Refills Prov: Trey Goncalves MD 01/16/18 Disposition: 01 DISCHARGE HOME Condition: Stable rTey Goncalves MD Jan 16, 2018 17:28
[2018-01-16] MEDS ORDERED: ONDANSETRON HCL 4 MG/2 ML VIAL IV ONE (17:30)
[2018-01-16] MEDS ORDERED: SODIUM CHLOR 0.9% 1000 ML INJ 1,000 ML IV ONE (17:30)
--- NOTE | 2018-01-16 17:53 | RADRPT ---
EXAM DATE/TIME: 01/16/2018 17:36 [facility] COMPARISON: No previous studies available for comparison. INDICATIONS : Shortness of breath, chest pains. MEDICAL HISTORY : None. SURGICAL HISTORY : None. ENCOUNTER: Initial ACUITY: 1 week PAIN SCORE: 5/10 LOCATION: Bilateral chest FINDINGS: A single view of the chest demonstrates the lungs to be symmetrically aerated without evidence of mas s, infiltrate or effusion. The cardiomediastinal contours are unremarkable. Osseous structures are intact. CONCLUSION: No acute disease. Kam Thomas MD on January 16, 2018 at 17:48 Board Certified Radiologist. This report was verified electronically.
[2018-01-16 18:11] LABS: BASOPHIL % 0.4 % (0.0-2.0); EOSINOPHIL % 0.2 % (0.0-4.0); HEMATOCRIT 43.1 % (35.0-46.0); HEMOGLOBIN 14.5 GM/DL (11.6-15.3); LYMPH % 30.9 % (9.0-44.0); MEAN CELL VOLUME 84.9 FL (80.0-100.0); MEAN CORPUSCULAR HEMOGLOBIN 28.6 PG (27.0-34.0); MEAN CORPUSCULAR HGB CONC 33.7 % (32.0-36.0); MEAN PLATELET VOLUME 9.6 FL (7.0-11.0); MONO % 6.8 % (0.0-8.0); MONOCYTE # 0.4 TH/MM3 (0-0.9); NEUT % 61.7 % (16.0-70.0); PLATELET COUNT 246 TH/MM3 (150-450); RED BLOOD COUNT 5.08 MIL/MM3 (4.00-5.30); RED CELL DISTRIBUTION WIDTH 13.1 % (11.6-17.2); WHITE BLOOD COUNT 6.6 TH/MM3 (4.0-11.0)
[2018-01-16 18:27] LABS: BICARBONATE 24.9 MEQ/L (21.0-32.0); CREATININE 0.83 MG/DL (0.50-1.00)
[2018-01-16] MEDS ORDERED: PROM1SUP7 RECTAL (19:04)
[2018-01-16 19:39] VITALS: PULSE 86; RESP 18; O2SAT 98
== END 2018-01-16 19:47 | disposition home or self-care (01) ==
LOC: NEPD 16:37
DX: O26.891 Other specified pregnancy related conditions, first trimester (principal); R06.02 Shortness of breath; O21.9 Vomiting of pregnancy, unspecified; O99.341 Other mental disorders complicating pregnancy, first trimester; F41.9 Anxiety disorder, unspecified; F32.9 Major depressive disorder, single episode, unspecified; O99.511 Diseases of the respiratory system complicating pregnancy, first trimester; J45.909 Unspecified asthma, uncomplicated; Z3A.01 Less than 8 weeks gestation of pregnancy
CPT/HCPCS: 71045; 80048; 85025; 87804; 96361; 96374; 99284; J2405; J7030

== ENCOUNTER 2018-02-09 21:56 | Emergency (ER) | payer MEDICAID ==
[~2018-02-09 21:56] MED LIST changes: +PROM1SUP7 RECTAL
== END 2018-02-09 22:23 | disposition left against medical advice (07) ==
LOC: NED 21:56
DX: O20.9 Hemorrhage in early pregnancy, unspecified (principal); Z3A.10 10 weeks gestation of pregnancy; Z53.21 Procedure and treatment not carried out due to patient leaving prior to being seen by health care provider
CPT/HCPCS: 99281

== ENCOUNTER 2018-03-15 10:54 | Emergency (ER) | payer MEDICAID ==
[~2018-03-15] VITALS: Ht 162.6 cm; Wt 71.0 kg
[2018-03-15 11:06] VITALS: BP 113/55; PULSE 80; RESP 16; TEMP 98.3; O2SAT 100
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
== END 2018-03-15 12:09 | disposition home or self-care (01) ==
LOC: NEPD 10:54
DX: O9A.212 Injury, poisoning and certain other consequences of external causes complicating pregnancy, second trimester (principal); S39.81XA Other specified injuries of abdomen, initial encounter; W50.0XXA Accidental hit or strike by another person, initial encounter; Z3A.16 16 weeks gestation of pregnancy
CPT/HCPCS: 99281

== ENCOUNTER 2018-05-13 01:19 | Emergency (ER) | payer MEDICAID ==
[2018-05-13] MEDS ORDERED: LACTATED RINGER'S 1000 ML INJ 1,000 ML IV SCH (02:25)
--- NOTE | 2018-05-13 02:25 | PD ---
HPI Chief Complaint Lower abdominal pain Date Seen: May 13, 2018 Time Seen: 02:17 Travel History International Travel<30 Days: No Contact w/Intl Traveler<30Days: No Known Affected Area: No History of Present Illness HPI Patient is 23-year-old black female 23 weeks presents complaining of lower abdominal pain possibly leaking fluid her amnisure is negative tonight, she has no bleeding, and on the monitor as she has an occasional contraction and uterine irritability. Patient has a history of labor and delivery with her first baby being born at 34 weeks. Patient gets her care with Dr. Campos Weeks Gestation: 23 Para: 1 : 3 Miscarriage: 1 History Obstetric History Obstetric History 1 delivery at 34 weeks and 1 early loss, she currently gets the Lizbeth shot for labor prevention Social History Alcohol Use: No Tobacco Use: No Substance Abuse: No Allergies-Medications (Allergen,Severity, Reaction): Coded Allergies: No Known Allergies (Verified Adverse Reaction, Unknown, 03/15/18) Home Meds Active Scripts Promethazine Supp (Phenergan Supp) 25 Mg Supp, 25 MG RECTAL Q6H Y for NAUSEA OR VOMITING, #14 SUPP 0 Refills Prov:Trey Goncalves MD 01/16/18 Pyridoxine (Vitamin B-6) 50 Mg Tab, 50 MG PO Q8HR Y for NAUSEA, #30 TAB 0 Refills Prov:Cisco Page MD 01/13/18 Clindamycin Vaginal Cream (Cleocin Vaginal Cream) 2% Cream, 1 APPL VAGINAL HS for Infection, #7 APPL 0 Refills Prov:Cisco Page MD 01/13/18 Review of Systems General / Constitutional: No: Fever, Weight Gain, Chills, Other Eyes: No: Diploplia, Blurred Vision, Visual changes, Pain, Photophobia HENT: No: Headaches, Vertigo, Lightheadedness Cardiovascular: No: Irregular Rhythm, Chest Pain or Discomfort, Palpitations, Tachycardia, Syncope, Varicosities, Edema, Cyanosis Respiratory: No: Cough, Short of Breath, Other Gastrointestinal: Abdominal Pain, No: Nausea, Vomiting, Diarrhea Genitourinary: No: Decreased Urinary Output, Oliguria Musculoskeletal: No: Limited ROM, Weakness, Cramping, Edema, Pain Skin: No Rash, No Itching, No Dryness, No Lumps, No Change in Pigmentation, No Change in Nails, No Alopecia, No Lesions Neurologic: No: Weakness, Dizziness, Syncope, Focal Abnormalities, Coordination Problem, Headache, Slurred Speech, Seizures Psychiatric: No: Depression, Suicidal Ideations, Homicidal Ideation Endocrine: No: Heat Intolerance, Cold Intolerance, Polydipsia, Polyuria, Other Physical Exam Narrative GENERAL: Well-nourished, well-developed patient. SKIN: Warm and dry. HEAD: Normocephalic and atraumatic. EYES: No scleral icterus. No injection or drainage. ENT: No nasal drainage noted. Mucous membranes pink. Airway patent. NECK: Supple, trachea midline. No JVD. CARDIOVASCULAR: Regular rate and rhythm without murmurs, gallops, or rubs. RESPIRATORY: Breath sounds equal bilaterally. No accessory muscle use. BREASTS: Bilateral exam showed no masses , no retractions, no nipple discharge. ABDOMEN/GI: Abdomen soft, non-tender, bowel sounds present, no rebound, no guarding Gravid to [-23] weeks size Fundal Height: [23-] GENITOURINARY: External Genitalia: intact and normal in appearance BUS glands: [-] Cervix: [post-] Dilatation: [0-] Effacement: [-0] Station: [-3] Membranes: [intact ] Uterine Contractions: [occasional-] FHT's: Category: [1-] Baseline: [133-] Reactive: [R-] Variability: [mod-] Decels: [0-] EXTREMITIES: No cyanosis or edema. BACK: Nontender without obvious deformity. No CVA tenderness. NEUROLOGICAL: Awake and alert. Motor and sensory grossly within normal limits. Five out of 5 muscle strength in all muscle groups. Normal speech. Data Data Labs Urine dip on OB ED is negative MDM Interpretation(s) Patient is 23-year-old black female at 23 weeks presents complaining of pain and possibly leaking fluid, her amnisure is negative. Only occasional small contractions seen are regular. Cervix is closed thick and high Plan Plan IV hydrate, I V fentanyl for pain Will at that point after liter fluid, discharge patient home to bedrest follow- up with her OB provider Diagnosis Diagnosis: Primary Impression: Abdominal pain during in second trimester Additional Impressions: History of pre-term labor 23 weeks gestation of Disposition: DISCHARGE HOME Condition: Stable Jakub Walker II, MD May 13, 2018 02:25
== END 2018-05-13 04:00 | disposition home or self-care (01) ==
LOC: HOBED 01:19
DX: O26.892 Other specified pregnancy related conditions, second trimester (principal); R10.30 Lower abdominal pain, unspecified; Z3A.23 23 weeks gestation of pregnancy
CPT/HCPCS: 84112; 96374; 99284; J3010; J7120

== ENCOUNTER 2018-08-01 19:22 | Inpatient (IN) ==
--- NOTE | 2018-08-01 20:22 | ED ---
History of Present Illness Service: OB Primary Care Physician: NOT REQUIRED Chief Complaint: contractions History of Present Illness: since 1800 today Weeks Gestation:: 34 Para: 1 : 3 Review of Systems All other systems reviewed negative except as stated in [facility] - Medical History Medical History: Medical History (Last Updated 08/01/18 @ 20:12 by Kenney Bell MD) Anxiety Bipolar disorder Bowel obstruction - Surgical History Surgical History: Surgical History (Last Updated 08/01/18 @ 20:12 by Kenney Bell MD) History of hernia repair - Social History I have reviewed the patient's Social History: Yes - Tobacco History Second Hand Smoke Exposure: No Tobacco Use In Past 30 Days: No Smoking Status: Never smoker - Alcohol History How Often Do You Have a Drink Containing Alcohol: Never - Travel History History of Recent Travel: No Recent Travel in the [place] Within the Last 8 Weeks: No Recent Travel Out of the Country Within the Last 8 Weeks: No Medications and Allergies Allergies Allergy/AdvReac Type Severity Reaction Status Date / Time No Known Allergies AdvReac Severe Anemia Uncoded 08/01/18 19:56 Exam Vital signs: Vital Signs 08/01/18 19:42 Temperature 98.1 F Intake & Output 08/01/18 08/01/18 08/02/18 06:59 18:59 06:59 Weight 83.915 kg Narrative: GENERAL: Well-nourished, well-developed patient. SKIN: Warm and dry. HEAD: Normocephalic and atraumatic. EYES: No scleral icterus. No injection or drainage. ENT: No nasal drainage noted. Mucous membranes pink. Airway patent. NECK: Supple, trachea midline. No JVD. CARDIOVASCULAR: Regular rate and rhythm without murmurs, gallops, or rubs. RESPIRATORY: Breath sounds equal bilaterally. No accessory muscle use. BREASTS: Bilateral exam showed no masses , no retractions, no nipple discharge. ABDOMEN/GI: Abdomen soft, non-tender, bowel sounds present, no rebound, no guarding Gravid to [35] weeks size Fundal Height: [35] GENITOURINARY: External Genitalia: intact and normal in appearance BUS glands: [wnl] Cervix: [mid] Dilatation: [2] Effacement: [50] Station: [-3] Presentation: [breech by sono now] Membranes: [intact] Uterine Contractions: [q 3-4 min] FHT's: Category: [1] Baseline: [140] Reactive: [y] Variability: [mod] Decels: [none] EXTREMITIES: No cyanosis or edema. BACK: Nontender without obvious deformity. No CVA tenderness. NEUROLOGICAL: Awake and alert. Motor and sensory grossly within normal limits. Five out of 5 muscle strength in all muscle groups. Normal speech. - Constitutional no acute distress - Routine HEENT Exam Head: Present: normocephalic Assessment and Plan - Diagnosis (1) Breech presentation Code(s): O32.1XX0 - Maternal care for breech presentation, not applicable or unspecified Status: Acute (2) labor Code(s): O60.00 - labor without delivery, unspecified trimester Status : Acute (3) 34 weeks gestation of Code(s): Z3A.34 - 34 weeks gestation of Status: Acute - Plan 34 + 5 wks in PTL, breech presentation, intact membrane will start celestone 12 mg im q 24 hr if pt will progress, cs tonight Discharge Plan - Discharge Disposition Patient Disposition: 30 Still Patient - Physicians Team ED Provider: Kenney Bell Primary Care Provider: NOT REQUIRED, - Discharge Instructions Print Language: Turkish
--- NOTE | 2018-08-01 20:36 | P.HPOB ---
History of Present Illness Primary Care Physician: NOT REQUIRED Chief Complaint: contractions History of Present Illness: History of Present Illness Service: OB Primary Care Physician: NOT REQUIRED Chief Complaint: contractions History of Present Illness: since 1800 today Weeks Gestation:: 34 Para: 1 : 3 Review of Systems All other systems reviewed negative except as stated in [facility] - Medical History Medical History: Medical History (Last Updated 08/01/18 @ 20:12 by Kenney Bell MD) Anxiety Bipolar disorder Bowel obstruction - Surgical History Surgical History: Surgical History (Last Updated 08/01/18 @ 20:12 by Kenney Bell MD) History of hernia repair - Social History I have reviewed the patient's Social History: Yes - Tobacco History Second Hand Smoke Exposure: No Tobacco Use In Past 30 Days: No Smoking Status: Never smoker - Alcohol History How Often Do You Have a Drink Containing Alcohol: Never - Travel History History of Recent Travel: No Recent Travel in the [place] Within the Last 8 Weeks: No Recent Travel Out of the Country Within the Last 8 Weeks: No Medications and Allergies Allergies Allergy/AdvReac Type Severity Reaction Status Date / Time No Known Allergies AdvReac Severe Anemia Uncoded 08/01/18 19:56 Exam Vital signs: Vital Signs 08/01/18 19:42 Temperature 98.1 F Intake & Output 08/01/18 08/01/18 08/02/18 06:59 18:59 06:59 Weight 83.915 kg Narrative: GENERAL: Well-nourished, well-developed patient. SKIN: Warm and dry. HEAD: Normocephalic and atraumatic. EYES: No scleral icterus. No injection or drainage. ENT: No nasal drainage noted. Mucous membranes pink. Airway patent. NECK: Supple, trachea midline. No JVD. CARDIOVASCULAR: Regular rate and rhythm without murmurs, gallops, or rubs. RESPIRATORY: Breath sounds equal bilaterally. No accessory muscle use. BREASTS: Bilateral exam showed no masses , no retractions, no nipple discharge. ABDOMEN/GI: Abdomen soft, non-tender, bowel sounds present, no rebound, no guarding Gravid to [35] weeks size Fundal Height: [35] GENITOURINARY: External Genitalia: intact and normal in appearance BUS glands: [wnl] Cervix: [mid] Dilatation: [2] Effacement: [50] Station: [-3] Presentation: [breech by sono now] Membranes: [intact] Uterine Contractions: [q 3-4 min] FHT's: Category: [1] Baseline: [140] Reactive: [y] Variability: [mod] Decels: [none] EXTREMITIES: No cyanosis or edema. BACK: Nontender without obvious deformity. No CVA tenderness. NEUROLOGICAL: Awake and alert. Motor and sensory grossly within normal limits. Five out of 5 muscle strength in all muscle groups. Normal speech. - Constitutional no acute distress - Routine HEENT Exam Head: Present: normocephalic Assessment and Plan - Diagnosis (1) Breech presentation Code(s): O32.1XX0 - Maternal care for breech presentation, not applicable or unspecified Status: Acute (2) labor Code(s): O60.00 - labor without delivery, unspecified trimester Status : Acute (3) 34 weeks gestation of Code(s): Z3A.34 - 34 weeks gestation of Status: Acute - Plan 34 + 5 wks in PTL, breech presentation, intact membrane will start celestone 12 mg im q 24 hr if pt will progress, cs tonight Discharge Plan - Discharge Disposition Patient Disposition: 30 Still Patient - Physicians Team ED Provider: Kenney Bell Primary Care Provider: NOT REQUIRED, - Discharge Instructions Print Language: Romanian Weeks Gestation:: 34 - Inpatient Certification I certify that the inpatient services were ordered in accordance with Medicare regulations governing the order. This includes certification that hospital inpatient services are reasonable and necessary and in the case of services not specified as inpatient-only under 42 CFR 419.22(n), that they are appropriately provided as inpatient services in accordance to with the 2-midnight benchmark under 43 CFR 412.3(e) [facility] - Surgical History Surgical History: Surgical History (Last Updated 08/01/18 @ 20:12 by Kenney Bell MD) History of hernia repair - Tobacco History Second Hand Smoke Exposure: No Tobacco Use In Past 30 Days: No Smoking Status: Never smoker - Alcohol History How Often Do You Have a Drink Containing Alcohol: Never - Travel History History of Recent Travel: No Recent Travel in the [place] Within the Last 8 Weeks: No Recent Travel Out of the Country Within the Last 8 Weeks: No Medications and Allergies Allergies Allergy/AdvReac Type Severity Reaction Status Date / Time No Known Allergies Allergy Verified 08/01/18 20:29 Exam Vital signs: Vital Signs 08/01/18 19:42 Temperature 98.1 F Intake & Output 08/01/18 08/01/18 08/02/18 06:59 18:59 06:59 Weight 83.915 kg Caprini VTE Risk Assessment Caprini VTE Risk Assessment: No/Low Risk (score <= 1) Caprini Risk Assessment Model: Point Value = 1 Point Value = 2 Point Value = 3 Point Value = 5 Age 41-60 Minor surgery BMI > 25 kg/m2 Swollen legs Varicose veins or History of unexplained or recurrent spontaneous Oral contraceptives or hormone replacement Sepsis (< 1 month) Serious lung disease, including pneumonia (< 1 month) Abnormal pulmonary function Acute myocardial infarction Congestive heart failure (< 1 month) History of inflammatory bowel disease Medical patient at bed rest Age 61-74 Arthroscopic surgery Major open surgery (> 45 min) Laparoscopic surgery (> 45 min) Malignancy Confined to bed (> 72 hours) Immobilizing plaster cast Central venous access Age >= 75 History of VTE Family history of VTE Factor V Leiden Prothrombin [id number] Lupus anticoagulant Anticardiolipin antibodies Elevated serum homocysteine Heparin-induced thrombocytopenia Other congenital or acquired thrombophilia Stroke (< 1 month) Elective arthroplasty Hip, pelvis, or leg fracture Acute spinal cord injury (< 1 month) Prophylaxis Regimen: Total Risk Factor Score Risk Level Prophylaxis Regimen 0-1 Low Early ambulation 2 Moderate Order ONE of the following: *Sequential Compression Device (SCD) *Heparin 5000 units SQ BID 3-4 Higher Order ONE of the following medications: *Heparin 5000 units SQ TID *Enoxaparin/Lovenox 40 mg SQ daily (WT < 150 kg, CrCl > 30 mL/min) *Enoxaparin/Lovenox 30 mg SQ daily (WT < 150 kg, CrCl > 10-29 mL/min) *Enoxaparin/Lovenox 30 mg SQ BID (WT < 150 kg, CrCl > 30 mL/min) AND/OR *Sequential Compression Device (SCD) 5 or more Highest Order ONE of the following medications: *Heparin 5000 units SQ TID (Preferred with Epidurals) *Enoxaparin/Lovenox 40 mg SQ daily (WT < 150 kg, CrCl > 30 mL/min) *Enoxaparin/Lovenox 30 mg SQ daily (WT < 150 kg, CrCl > 10-29 mL/min) *Enoxaparin/Lovenox 30 mg SQ BID (WT < 150 kg, CrCl > 30 mL/min) AND *Sequential Compression Device (SCD) Assessment and Plan - Diagnosis (1) Breech presentation Code(s): O32.1XX0 - Maternal care for breech presentation, not applicable or unspecified Status: Acute (2) labor Code(s): O60.00 - labor without delivery, unspecified trimester Status : Acute (3) 34 weeks gestation of Code(s): Z3A.34 - 34 weeks gestation of Status: Acute - Plan celestone iv hydration cs if progress of cx dilatation
[2018-08-01] MEDS ORDERED: fentaNYL Citrate Inj 100 MCG/2 ML Ampul IV.PUSH PRN ×2 (20:37)
[2018-08-01] MEDS ORDERED: Sodium Chlor 0.9% Inj 500 ML IV.SIG PRN (20:37)
[2018-08-01] MEDS ORDERED: Naloxone Inj 0.4 MG/ML Vial IV.PUSH PRN (20:37)
[2018-08-01] MEDS ORDERED: Sod Chloride 0.9% Inj 1,000 ML IV.CONT PRN (20:37)
[2018-08-01] MEDS ORDERED: Oxytocin 30 Units/500ml Premix 30 UNITS/500 ML BAG IV.SIG ONE (20:37)
[2018-08-01] MEDS ORDERED: Citric Acid/Sodium Citrate Liq 30 ML UDC PO SCH (20:45)
[2018-08-01] MEDS ORDERED: Betamethasone Sod Phos/Acetate Inj 30 MG/5 ML Vial IM ONE (21:00)
[2018-08-01 21:03] LABS: Baso % (Auto) 0.5 % (0.0-2.0); Eos % (Auto) 0.4 % (0.0-4.0); Hematocrit 35.2 % (35.0-46.0); Hemoglobin 11.4 gm/dL (11.6-15.3); Lymph # (Auto) 2.5 th/mm3 (1.0-4.8); Lymph % (Auto) 30.7 % (9.0-44.0); Mean Corpuscular HGB Conc 32.3 % (32.0-36.0); Mean Corpuscular Hemoglobin 27.3 pg (27.0-34.0); Mean Corpuscular Volume 84.6 fL (80.0-100.0); Mean Platelet Volume 10.7 fL (7.0-11.0); Mono # (Auto) 0.6 th/mm3 (0.0-0.9); Mono % (Auto) 7.9 % (0.0-8.0); Neut % (Auto) 60.5 % (16.0-70.0); Platelet Count 192 th/mm3 (150-450); Red Blood Count 4.16 mil/mm3 (4.00-5.30); Red Cell Distribution Width 13.4 % (11.6-17.2); White Blood Count 8.2 th/mm3 (4.0-11.0)
[2018-08-01 23:04] LABS: Amorphous Sediment,Urine Rare /hpf; Bacteria,Urine Occasional /hpf; Bilirubin,Urine Negative (Negative); Clarity,Urine Hazy (Clear); Color,Urine Yellow (Yellw/Straw); Glucose,Urine (UA) Negative (Negative); Hyaline Casts,Urine 1 /lpf (0-3); Leukocyte Esterase,Urine Small (Negative); Mucus,Urine Few /lpf (Occasional); Nitrite,Urine Negative (Negative); Specific Gravity,Urine 1.011 (1.002-1.035); Squamous Epithelial Cell,Urine 3 /hpf (0-5)
[2018-08-01 23:05] LABS: Amphetamine Urine With Conf Neg (Neg); Benzodiazepine Urine With Conf Neg (Neg)
[2018-08-02 08:43] VITALS: BP 113/54
[2018-08-02 09:05] VITALS: RESP 16; TEMP 97.9
--- NOTE | 2018-08-02 09:48 | P.OBANTE ---
Subjective Interval History: Patient is a 23 year old at 35 weeks and 0 days who presented to OB triage for evaluation of abdominal cramping. Patient was found to be chepe q3-4 minutes. Patient received one dose of betamethasone. Contractions have ceased following IV hydration. Patient reports some lower abdominal discomfort but denies contractions. She denies fluid leakage and vaginal bleeding. Patient endorses positive movement. Antepartum ROS: Reports: Contractions Objective Vital Signs and I&O: Vital Signs 08/01/18 19:42 08/01/18 19:45 08/01/18 21:15 Temperature 98.1 F Pulse Rate 75 71 Respiratory Rate 18 18 Blood Pressure 120/67 113/66 08/01/18 23:56 08/02/18 02:55 08/02/18 06:45 Temperature Pulse Rate 83 81 70 Respiratory Rate 16 Blood Pressure 98/42 L 106/55 L 106/52 L 08/02/18 06:55 08/02/18 07:00 08/02/18 08:25 Temperature 97.7 F Pulse Rate 75 79 Respiratory Rate 18 Blood Pressure 113/54 L 08/02/18 08:30 Temperature 97.9 F Pulse Rate Respiratory Rate 16 Blood Pressure Lab and Micro Results: Laboratory Results - last 24 hr 08/01/18 08/01/18 08/01/18 20:00 20:00 20:15 WBC 8.2 RBC 4.16 Hgb 11.4 L Hct 35.2 MCV 84.6 MCH 27.3 MCHC 32.3 RDW 13.4 Plt Count 192 MPV 10.7 Neut % (Auto) 60.5 Lymph % (Auto) 30.7 Cottle % (Auto) 7.9 Eos % (Auto) 0.4 Baso % (Auto) 0.5 Neut # (Auto) 5.0 Lymph # (Auto) 2.5 Cottle # (Auto) 0.6 Eos # (Auto) 0.0 Baso # (Auto) 0.0 WBC Differential . Differential Comment Auto diff final Urine Color Yellow Urine Clarity Hazy H Urine pH 7.0 Ur Specific [place] 1.011 Urine Protein 100 H Urine Glucose (UA) Negative Urine Ketones Negative Urine Occult Blood Moderate H Urine Nitrate Negative Urine Bilirubin Negative Urine Urobilinogen Less than 2 Ur Leukocyte Esterase Small H Urine RBC 15 H Urine WBC 13 H Ur Squamous Epith Cells 3 Amorphous Sediment Rare H Urine Bacteria Occasional H Hyaline Casts 1 Urine Mucus Few H Micro UA Comment Culture indicated Ur Microscopic Review Not Reportable Urine Culture Comments Culture indicated Urine Opiates Screen Neg Ur Barbiturates Screen Neg Ur Amphetamine Screen Neg U Benzodiazepines Scrn Neg Urine Cocaine Screen Neg U Cannabinoids Screen Neg Blood Type 08/01/18 20:15 WBC RBC Hgb Hct MCV MCH MCHC RDW Plt Count MPV Neut % (Auto) Lymph % (Auto) [place]le % (Auto) Eos % (Auto) Baso % (Auto) Neut # (Auto) Lymph # (Auto) [place] # (Auto) Eos # (Auto) Baso # (Auto) WBC Differential Differential Comment Urine Color Urine Clarity Urine pH Ur Specific [place] Urine Protein Urine Glucose (UA) Urine Ketones Urine Occult Blood Urine Nitrate Urine Bilirubin Urine Urobilinogen Ur Leukocyte Esterase Urine RBC Urine WBC Ur Squamous Epith Cells Amorphous Sediment Urine Bacteria Hyaline Casts Urine Mucus Micro UA Comment Ur Microscopic Review Urine Culture Comments Urine Opiates Screen Ur Barbiturates Screen Ur Amphetamine Screen U Benzodiazepines Scrn Urine Cocaine Screen U Cannabinoids Screen Blood Type A Positive Physical Exam: GENERAL: Well-nourished, well-developed patient. CARDIOVASCULAR: Regular rate and rhythm without murmurs, gallops, or rubs. RESPIRATORY: Breath sounds equal bilaterally. No accessory muscle use. ABDOMEN/GI: Abdomen soft, non-tender. Fundus: [-] GENITOURINARY: External Genitalia: intact and normal in appearance Dilatation: 2cm Effacement: 50% Station: -2 Membranes: intact Uterine Contractions: none FHT's: Category: 1 Baseline: 120 Reactive: + Variability: moderate Decels: none EXTREMITIES: No cyanosis or edema, non-tender, without signs of DVT. Assessment and Plan - Diagnosis (1) 34 weeks gestation of Code(s): Z3A.34 - 34 weeks gestation of Status: Acute (2) labor Code(s): O60.00 - labor without delivery, unspecified trimester Status : Acute (3) Breech presentation Code(s): O32.1XX0 - Maternal care for breech presentation, not applicable or unspecified Status: Acute - Plan Patient is a 23 year old at 35 weeks and 0 days who presented to OB triage for evaluation of abdominal cramping. Patient was found to be chepe q3-4 minutes. Contractions have now stopped following IV hydration and bed rest. Cervical exam unchanged in 12+ hours. Patient received one dose of betamethasone. Second dose to be given by OB provider or patient may return to OB triage tomorrow. Patient to be discharged home. Encouraged bed rest. Discussed with OB hospitalist.
[2018-08-02 10:17] VITALS: PULSE 106
[2018-08-02] MEDS ORDERED: Betamethasone Sod Phos/Acetate Inj 30 MG/5 ML Vial IM ONE (21:00)
== END 2018-08-02 12:39 | disposition home or self-care (01) ==
LOC: HOBED 19:22 → H2E 20:29
PROVIDERS: ADMIT Obstetrics & Gynecology; ATTEND Obstetrics & Gynecology